=== PATIENT | male | born 1980 | race Caucasian/White ===

== ENCOUNTER 2021-02-12 09:00 | Inpatient (IN) | payer BC ==
[~2021-02-12] VITALS: Ht 188 cm; Wt 90.7 kg
[~2021-02-12 09:00] MED LIST: AUGMENTIN 875-1 EACH PO; BENADRYL 25MG C25 MG PO; COLACE 100MG C100 MG PO; CREON DR 24,001 EACH PO; CYCLOBENZAPRINE10 MG PO; ELAVIL 10 MG TA10 MG PO; HYDROCODON-ACE1 EAC2 PO; HYDROCODON-ACE1 EAC4 PO; NORCO 5-325 TA1 EACH PO; NORCO 7.5-3251 EACH PO; PERCOCET 5-3251 EACH PO; PERCOCET 7.5-31 EACH PO; PROTONIX40 MG PO; ZOFRAN ODT 4 MG4 MG SL; ZOFRAN4 MG PO
[2021-02-12 09:56] LABS: HEMOGLOBIN 15.1 gm/dl (14.0-17.5); RED BLOOD COUNT 4.42 M/UL (4.20-5.50); WHITE BLOOD COUNT 10.8 K/UL (4.5-11.0)
[2021-02-12 10:41] LABS: BUN/CREATININE RATIO 11 (0-10)
[2021-02-12 14:37] LABS: BUN/CREATININE RATIO 9 (0-10)
[2021-02-12] MEDS ORDERED: OMEPRAZOLE20 MG PO (15:17)
[2021-02-12] MEDS ORDERED: ZOFRAN4 MG PO (15:31)
[2021-02-12] MEDS ORDERED: HYDROCODON-ACE1 EAC4 PO (15:31)
[2021-02-13 04:22] LABS: HEMOGLOBIN 13.5 gm/dl (14.0-17.5); RED BLOOD COUNT 4.01 M/UL (4.20-5.50); WHITE BLOOD COUNT 7.2 K/UL (4.5-11.0)
[2021-02-13 04:51] LABS: BUN/CREATININE RATIO 9 (0-10)
[2021-02-14 06:47] LABS: HEMOGLOBIN 13.2 gm/dl (14.0-17.5); RED BLOOD COUNT 3.86 M/UL (4.20-5.50); WHITE BLOOD COUNT 6.7 K/UL (4.5-11.0)
[2021-02-14 07:31] LABS: BUN/CREATININE RATIO 8 (0-10)
--- NOTE | 2021-02-14 17:06 | NUR ---
CALLED DR. ADAMS CONCERNING HYACINTH SERVIN IN 510 CONCERNING PT. WANTING A FLEXERIL FOR MUSCLE SPASMS. THE DOCTOR ENTERED THE ORDER FOR A ONE TIME DOSE. ALSO NOTIFIED DOCTOR THAT AN ALARM WAS HEARD WHEN PT. CALLED OUT FOR THE PAIN MEDICATION.
[2021-02-15 07:14] LABS: BUN/CREATININE RATIO 5 (0-10)
[2021-02-16 03:16] LABS: BUN/CREATININE RATIO 3 (0-10)
== END 2021-02-16 15:57 | disposition home or self-care (01) | DRG 438 ==
LOC: ER1 09:00 → M/S 14:52 → CDU 14:52 → M/S 02-13 15:25
PROVIDERS: Emergency Medicine; Internal Medicine; ADMIT Internal Medicine
PROC: 8E0ZXY6 Isolation (ICD-10-PCS; principal; 2021-02-13)
DX: K85.90 Acute pancreatitis without necrosis or infection, unspecified (principal); U07.1 COVID-19; E87.2 Acidosis; K86.1 Other chronic pancreatitis; E87.6 Hypokalemia; R74.01 Elevation of levels of liver transaminase levels; E83.42 Hypomagnesemia; K21.9 Gastro-esophageal reflux disease without esophagitis; E83.51 Hypocalcemia; E03.9 Hypothyroidism, unspecified
CPT/HCPCS: 36415; 36600; 80048; 80053; 80307; 81001; 82550; 82553; 82803; 83605; 83690; 83735; 83874; 84100; 84132; 84439; 84443; 84484; 85025; 85027; 93005; 96374; 96375; 99285; C9113; G0378; G0480; J0610; J1170; J1650; J2405; J3360; J3475; J7030; J7120; Q9967; U0002

== ENCOUNTER 2022-02-26 11:53 | Inpatient (IN) | payer BC ==
[~2022-02-26] VITALS: Ht 188 cm; Wt 81.6 kg
[~2022-02-26 11:53] MED LIST changes: +OMEPRAZOLE20 MG PO
[2022-02-26 13:43] LABS: HEMOGLOBIN 14.7 gm/dl (14.0-17.5); RED BLOOD COUNT 4.25 M/UL (4.20-5.50); WHITE BLOOD COUNT 16.8 K/UL (4.5-11.0)
[2022-02-26 14:27] LABS: BUN/CREATININE RATIO 11 (0-10)
[2022-02-26] MEDS ORDERED: OMEPRAZOLE20 MG PO (23:15)
[2022-02-26] MEDS ORDERED: CREON DR 24,001 EACH PO (23:15)
[2022-02-26] MEDS ORDERED: MELATONIN5 M2 PO (23:16)
[2022-02-26] MEDS ORDERED: PERCOCET 5-3251 EACH PO (23:16)
[2022-02-27 06:50] LABS: HEMOGLOBIN 12.3 gm/dl (14.0-17.5); RED BLOOD COUNT 3.62 M/UL (4.20-5.50); WHITE BLOOD COUNT 11.4 K/UL (4.5-11.0)
[2022-02-27 07:08] LABS: BUN/CREATININE RATIO 12 (0-10)
[2022-02-27] MEDS ORDERED: ONE-A-DAY MEN'1 EAC2 PO (10:18)
[2022-02-28 02:54] LABS: HEMOGLOBIN 12.4 gm/dl (14.0-17.5); RED BLOOD COUNT 3.64 M/UL (4.20-5.50); WHITE BLOOD COUNT 10.7 K/UL (4.5-11.0)
[2022-02-28 03:24] LABS: BUN/CREATININE RATIO 9 (0-10)
[2022-02-28] MEDS ORDERED: ZOFRAN ODT 4 MG4 MG SL (09:51)
== END 2022-02-28 12:55 | disposition home or self-care (01) | DRG 440 ==
LOC: ER1 11:53 → M/S 21:07 → CDU 21:07 → M/S 23:10
PROVIDERS: Emergency Medicine; Internal Medicine Infectious Disease; ADMIT Internal Medicine
DX: K85.90 Acute pancreatitis without necrosis or infection, unspecified (principal); K86.1 Other chronic pancreatitis; E87.6 Hypokalemia; D72.829 Elevated white blood cell count, unspecified; K21.9 Gastro-esophageal reflux disease without esophagitis; Z88.5 Allergy status to narcotic agent; Z79.899 Other long term (current) drug therapy
CPT/HCPCS: 36415; 71045; 80048; 80053; 80061; 81001; 82550; 82553; 83690; 83735; 84484; 85025; 93005; 96365; 96375; 96376; 99285; C9113; J1170; J1650; J1885; J2405; J3480; Q9967